=== PATIENT | male | born 1980 | race Caucasian/White ===

== ENCOUNTER 2017-06-20 21:57 | Emergency (ER) | payer OTHER ==
[~2017-06-20] VITALS: Ht 180.3 cm; Wt 72.6 kg
[2017-06-20] MEDS ORDERED: BACTRIM DS TAB1 EACH PO (23:32)
[2017-06-20] MEDS ORDERED: HYDROCODONE-AP1 EAC6 PO (23:32)
[2017-06-21 00:04] VITALS: BP 122/98
== END 2017-06-21 00:05 | disposition home or self-care (01) ==
LOC: M.ERS 21:57
DX: S61.012A Laceration without foreign body of left thumb without damage to nail, initial encounter (principal); F10.99 Alcohol use, unspecified with unspecified alcohol-induced disorder; Z88.0 Allergy status to penicillin; W26.0XXA Contact with knife, initial encounter; Y93.89 Activity, other specified; Y92.89 Other specified places as the place of occurrence of the external cause; Y99.8 Other external cause status